=== PATIENT | female | born 1995 | race Hispanic/Latino ===

== ENCOUNTER 2025-08-20 15:52 | Emergency (ER) | payer OTHER ==
[~2025-08-20] VITALS: Ht 149.9 cm; Wt 71.2 kg
[2025-08-20] MEDS: predniSONE 20 MG TAB PO ONE (18:55)
[2025-08-20] MEDS ORDERED: PRED20TA PO (18:57)
[2025-08-20] MEDS ORDERED: GABA-1172 PO (18:57)
[2025-08-20 18:58] VITALS: BP 124/82; TEMP 97.3; O2SAT 98
== END 2025-08-20 19:03 | disposition home or self-care (01) ==
LOC: M ED 15:52
DX: M54.42 Lumbago with sciatica, left side (principal)
CPT/HCPCS: 99283; J7512